=== PATIENT | male | born 1975 | race Caucasian/White ===

== ENCOUNTER 2018-02-11 04:09 | Inpatient (IN) | payer OTHER ==
[~2018-02-11] VITALS: Ht 188 cm; Wt 130.7 kg
[~2018-02-11 04:09] MED LIST: BAY PO; COR3 PO; DUONEB3 ML NEB; LIPI10 PO; ZES10 PO
[2018-02-11 05:14] LABS: CARBON DIOXIDE 29.8 mmol/L (21-32); CREATININE SERUM 1.6 mg/dL (0.7-1.3); POTASSIUM SERUM 3.1 mmol/L (3.5-5.1)
[2018-02-11 05:19] LABS: BILIRUBIN TOTAL 5.73 mg/dL (0.20-1.00); TOTAL PROTEIN, SERUM 7.5 g/dL (6.4-8.2)
[2018-02-11 05:21] LABS: ALBUMIN 3.3 g/dL (3.4-5.0)
[2018-02-11 05:30] LABS: BASOPHIL % 1.5 % (0-2)
[2018-02-11 05:31] LABS: PLATELET COUNT 224 x10^3mcL (130-400); RED CELL DISTRIBUTION WIDTH 18.4 % (11.5-14.5)
[2018-02-11] MEDS ORDERED: BUM1 (05:48)
[2018-02-11] MEDS ORDERED: COLACE100 MG (05:49)
[2018-02-11] MEDS ORDERED: CARVEDILOL3.125 M1 (05:49)
[2018-02-11] MEDS ORDERED: VITAMIN-D1000 IU (05:49)
[2018-02-11] MEDS ORDERED: ELIQUIS2.5 MG (05:49)
[2018-02-11] MEDS ORDERED: METOLAZONE2.5 M1 (05:49)
[2018-02-11] MEDS ORDERED: POTASSIUM CHLO10 MEQ (05:50)
[2018-02-11 05:58] LABS: MAGNESIUM 2.2 mg/dL (1.8-2.4); PHOSPHOROUS 4.1 mg/dL (2.5-4.9)
[2018-02-11 05:59] LABS: CHOLESTEROL/HDL RATIO 2.8
[2018-02-11 06:03] LABS: BILIRUBIN DIRECT 2.79 mg/dL (0.0-0.2); BILIRUBIN TOTAL 5.64 mg/dL (0.20-1.00)
[2018-02-11 06:10] LABS: T3 TOTAL 0.5 ng/mL
[2018-02-11 06:14] LABS: FREE T4 1.17 ng/dL (0.76-1.46); FREE THYROXINE INDEX 2.1 ug/dL (1.4-4.5); T4(THYROXINE) 5.4 ug/dL (4.7-13.3)
[2018-02-11 06:41] VITALS: BP 100/66
[2018-02-11 07:23] VITALS: BP 100/66
[2018-02-11 08:46] LABS: microscopic required? NO
[2018-02-11 09:59] LABS: urine erythrocyte NEGATIVE (NEGATIVE)
[2018-02-11 10:31] LABS: AMPHETAMINE QUAL UR NONE DETECTED (See below)
[2018-02-11 13:51] VITALS: BP 104/74
[2018-02-11 15:32] VITALS: BP 104/74
[2018-02-11 18:11] VITALS: BP 99/51
[2018-02-11 21:30] VITALS: BP 100/45
[2018-02-12 06:15] VITALS: BP 104/54
[2018-02-12 07:34] LABS: ALKALINE PHOSPHATASE 104 U/L (46-116); ALT/SGPT 15 U/L (16-63); AST/SGOT 38 U/L (15-37); BILIRUBIN DIRECT 2.43 mg/dL (0.0-0.2); BILIRUBIN TOTAL 4.61 mg/dL (0.20-1.00); CALCIUM 8.4 mg/dL (8.5-10.1); CARBON DIOXIDE 33.4 mmol/L (21-32); CHLORIDE SERUM 89 mmol/L (98-107); CREATININE SERUM 1.2 mg/dL (0.7-1.3); GFR1 > 60 mL/min; GLUCOSE SERUM 122 mg/dL (74-106); PHOSPHOROUS 2.9 mg/dL (2.5-4.9); SODIUM SERUM 126 mmol/L (136-145); TOTAL PROTEIN, SERUM 6.4 g/dL (6.4-8.2)
[2018-02-12 07:38] LABS: BASOPHIL % 0.5 % (0-2); PLATELET COUNT 217 x10^3mcL (130-400)
[2018-02-12 07:44] LABS: ALBUMIN 2.7 g/dL (3.4-5.0); POTASSIUM SERUM 2.4 mmol/L (3.5-5.1)
[2018-02-12 07:47] LABS: RED CELL DISTRIBUTION WIDTH 18.8 % (11.5-14.5)
[2018-02-12 08:30] VITALS: BP 90/54
[2018-02-12 12:16] VITALS: BP 90/55
[2018-02-12 16:39] VITALS: BP 86/56
[2018-02-12 20:49] VITALS: BP 93/60
[2018-02-12 22:22] VITALS: BP 94/69
[2018-02-13 05:48] LABS: BASOPHIL % 0.7 % (0-2); PLATELET COUNT 214 x10^3mcL (130-400)
[2018-02-13 06:09] LABS: CALCIUM 8.4 mg/dL (8.5-10.1); CARBON DIOXIDE 35.1 mmol/L (21-32); CHLORIDE SERUM 89 mmol/L (98-107); CREATININE SERUM 1.1 mg/dL (0.7-1.3); GFR1 > 60 mL/min; GLUCOSE SERUM 114 mg/dL (74-106); MAGNESIUM 1.8 mg/dL (1.8-2.4); PHOSPHOROUS 2.7 mg/dL (2.5-4.9); SODIUM SERUM 130 mmol/L (136-145)
[2018-02-13 06:12] LABS: POTASSIUM SERUM 2.8 mmol/L (3.5-5.1)
[2018-02-13 06:34] LABS: RED CELL DISTRIBUTION WIDTH 19.8 % (11.5-14.5)
[2018-02-13 07:26] VITALS: BP 93/64
[2018-02-13 12:19] VITALS: BP 98/63
[2018-02-13 16:22] VITALS: BP 92/59
[2018-02-13 22:02] VITALS: BP 96/62
[2018-02-14] VITALS (8 sets, daily range): BP systolic 78–110; BP diastolic 41–66
[2018-02-14 06:32] LABS: PLATELET COUNT 185 x10^3mcL (130-400)
[2018-02-14 07:00] LABS: CALCIUM 8.7 mg/dL (8.5-10.1); CARBON DIOXIDE 36.2 mmol/L (21-32); CHLORIDE SERUM 90 mmol/L (98-107); CREATININE SERUM 0.9 mg/dL (0.7-1.3); GFR1 > 60 mL/min; GLUCOSE SERUM 103 mg/dL (74-106); MAGNESIUM 1.5 mg/dL (1.8-2.4); PHOSPHOROUS 2.6 mg/dL (2.5-4.9); SODIUM SERUM 131 mmol/L (136-145)
[2018-02-14 07:08] LABS: POTASSIUM SERUM 2.8 mmol/L (3.5-5.1)
[2018-02-14 08:13] LABS: RED CELL DISTRIBUTION WIDTH 20.7 % (11.5-14.5)
[2018-02-14 11:50] LABS: ATYPICAL LYMPH 6 %; BAND NEUTROPHIL 0 % (0-10); BASOPHIL 1 % (0-2); MONOCYTE 4 % (0-7); SEGMENTED NEUTROPHILS 86 % (37-75)
[2018-02-14 11:51] LABS: rbc morphology (normal/abnorm) ABNORMAL (NORMAL)
[2018-02-14 11:52] LABS: PLATELET MORPHOLOGY PLATELETS DECREASED
[2018-02-15 05:34] VITALS: BP 89/63
[2018-02-15 06:05] LABS: BASOPHIL % 0.2 % (0-2); PLATELET COUNT 206 x10^3mcL (130-400)
[2018-02-15 06:09] LABS: CALCIUM 8.4 mg/dL (8.5-10.1); CARBON DIOXIDE 33.5 mmol/L (21-32); CHLORIDE SERUM 88 mmol/L (98-107); GFR1 > 60 mL/min; GLUCOSE SERUM 92 mg/dL (74-106); POTASSIUM SERUM 3.2 mmol/L (3.5-5.1); SODIUM SERUM 125 mmol/L (136-145)
[2018-02-15 06:22] LABS: RED CELL DISTRIBUTION WIDTH 20.3 % (11.5-14.5)
[2018-02-15 06:23] VITALS: BP 90/45
[2018-02-15 09:53] VITALS: BP 90/49
[2018-02-15 12:59] VITALS: BP 96/56
[2018-02-15 17:51] VITALS: BP 101/59
[2018-02-15 21:10] VITALS: BP 98/62
[2018-02-16 05:10] VITALS: BP 97/64
[2018-02-16 06:58] LABS: BASOPHIL % 0.9 % (0-2); PLATELET COUNT 224 x10^3mcL (130-400)
[2018-02-16 07:03] LABS: CALCIUM 8.9 mg/dL (8.5-10.1); CARBON DIOXIDE 33.8 mmol/L (21-32); CHLORIDE SERUM 88 mmol/L (98-107); GFR1 > 60 mL/min; GLUCOSE SERUM 108 mg/dL (74-106); MAGNESIUM 1.6 mg/dL (1.8-2.4); PHOSPHOROUS 3.3 mg/dL (2.5-4.9); POTASSIUM SERUM 3.8 mmol/L (3.5-5.1); SODIUM SERUM 126 mmol/L (136-145)
[2018-02-16 07:04] LABS: RED CELL DISTRIBUTION WIDTH 20.4 % (11.5-14.5)
[2018-02-16 07:31] VITALS: BP 101/67
[2018-02-16 12:27] VITALS: BP 102/60
[2018-02-16 15:37] VITALS: BP 99/71
[2018-02-16 21:05] VITALS: BP 123/72
[2018-02-17 06:24] VITALS: BP 106/70
[2018-02-17 06:43] LABS: BASOPHIL % 0.7 % (0-2); PLATELET COUNT 204 x10^3mcL (130-400)
[2018-02-17 07:10] LABS: CALCIUM 8.7 mg/dL (8.5-10.1); CARBON DIOXIDE 30.2 mmol/L (21-32); CHLORIDE SERUM 87 mmol/L (98-107); CREATININE SERUM 0.9 mg/dL (0.7-1.3); GFR1 > 60 mL/min; GLUCOSE SERUM 114 mg/dL (74-106); MAGNESIUM 1.9 mg/dL (1.8-2.4); POTASSIUM SERUM 3.6 mmol/L (3.5-5.1); SODIUM SERUM 127 mmol/L (136-145)
[2018-02-17 09:51] VITALS: BP 113/70
[2018-02-17 12:44] VITALS: BP 107/73
[2018-02-17 17:42] VITALS: BP 102/67
[2018-02-17 20:51] VITALS: BP 110/74
[2018-02-18 05:54] VITALS: BP 102/71
[2018-02-18 06:35] LABS: CALCIUM 8.9 mg/dL (8.5-10.1); CHLORIDE SERUM 85 mmol/L (98-107); CREATININE SERUM 1.3 mg/dL (0.7-1.3); GFR1 > 60 mL/min; GLUCOSE SERUM 111 mg/dL (74-106); POTASSIUM SERUM 4.2 mmol/L (3.5-5.1); SODIUM SERUM 126 mmol/L (136-145)
[2018-02-18 06:47] LABS: BASOPHIL % 0.6 % (0-2); PLATELET COUNT 221 x10^3mcL (130-400)
[2018-02-18 07:54] LABS: RED CELL DISTRIBUTION WIDTH 20.5 % (11.5-14.5)
[2018-02-18 08:07] VITALS: BP 104/65
[2018-02-18 12:18] VITALS: BP 106/72
[2018-02-18 15:33] LABS: rbc morphology (normal/abnorm) ABNORMAL (NORMAL)
[2018-02-18 16:30] VITALS: BP 102/69
[2018-02-18 20:50] VITALS: BP 94/56
[2018-02-19 04:32] VITALS: BP 92/54
[2018-02-19 07:11] LABS: BASOPHIL % 0.5 % (0-2); PLATELET COUNT 232 x10^3mcL (130-400)
[2018-02-19 07:12] LABS: RED CELL DISTRIBUTION WIDTH 21.4 % (11.5-14.5)
[2018-02-19 07:13] LABS: rbc morphology (normal/abnorm) ABNORMAL (NORMAL)
[2018-02-19 07:22] LABS: CALCIUM 9.1 mg/dL (8.5-10.1); CARBON DIOXIDE 30.1 mmol/L (21-32); CREATININE SERUM 1.4 mg/dL (0.7-1.3); POTASSIUM SERUM 4.2 mmol/L (3.5-5.1)
[2018-02-19 12:25] VITALS: BP 100/55
[2018-02-19 16:47] VITALS: BP 98/59
[2018-02-19 21:37] VITALS: BP 91/58
[2018-02-20 06:30] VITALS: BP 100/59
[2018-02-20 06:30] LABS: PLATELET COUNT 256 x10^3mcL (130-400)
[2018-02-20 06:40] LABS: CALCIUM 9.2 mg/dL (8.5-10.1); CHLORIDE SERUM 83 mmol/L (98-107); CREATININE SERUM 1.3 mg/dL (0.7-1.3); GFR1 > 60 mL/min; GLUCOSE SERUM 103 mg/dL (74-106)
[2018-02-20 06:41] LABS: RED CELL DISTRIBUTION WIDTH 20.8 % (11.5-14.5)
[2018-02-20 07:04] LABS: SODIUM SERUM 122 mmol/L (136-145)
[2018-02-20 08:03] VITALS: BP 90/63
[2018-02-20 10:00] VITALS: BP 105/29
[2018-02-20 10:35] VITALS: BP 100/56
[2018-02-20 11:19] LABS: ALBUMIN 2.7 g/dL (3.4-5.0); BILIRUBIN DIRECT 3.25 mg/dL (0.0-0.2); BILIRUBIN TOTAL 4.55 mg/dL (0.20-1.00); TOTAL PROTEIN, SERUM 7.6 g/dL (6.4-8.2)
[2018-02-20 12:35] LABS: SEGMENTED NEUTROPHILS 73 % (37-75)
[2018-02-20 12:36] LABS: ATYPICAL LYMPH 3 %; BAND NEUTROPHIL 3 % (0-10); BASOPHIL 0 % (0-2); MONOCYTE 9 % (0-7); rbc morphology (normal/abnorm) ABNORMAL (NORMAL)
[2018-02-20 12:37] LABS: acanthocyte (spur cell) 1+
[2018-02-20 12:38] LABS: PLATELET MORPHOLOGY PLATELETS DECREASED
[2018-02-20 15:26] VITALS: BP 105/92
[2018-02-20 19:51] VITALS: BP 98/63
[2018-02-21] VITALS (7 sets, daily range): BP systolic 82–102; BP diastolic 52–69
[2018-02-21 05:32] LABS: PLATELET COUNT 232 x10^3mcL (130-400)
[2018-02-21 05:37] LABS: BASOPHIL % 2.3 % (0-2); RED CELL DISTRIBUTION WIDTH 21.2 % (11.5-14.5)
[2018-02-21 05:38] LABS: CALCIUM 8.8 mg/dL (8.5-10.1); CARBON DIOXIDE 30.5 mmol/L (21-32); CREATININE SERUM 1.4 mg/dL (0.7-1.3); POTASSIUM SERUM 3.6 mmol/L (3.5-5.1)
[2018-02-21 05:42] LABS: TOTAL IRON BINDING CAPACITY 386 ug/dL (250-450)
[2018-02-21 05:51] LABS: IRON 31 ug/dL (65-170)
[2018-02-22 03:19] VITALS: BP 87/53
[2018-02-22 05:50] LABS: PLATELET COUNT 223 x10^3mcL (130-400)
[2018-02-22 06:01] LABS: RED CELL DISTRIBUTION WIDTH 21.1 % (11.5-14.5)
[2018-02-22 06:12] LABS: CALCIUM 8.6 mg/dL (8.5-10.1); CARBON DIOXIDE 39.2 mmol/L (21-32); CHLORIDE SERUM 82 mmol/L (98-107); CREATININE SERUM 1.3 mg/dL (0.7-1.3); GFR1 > 60 mL/min; GLUCOSE SERUM 112 mg/dL (74-106); POTASSIUM SERUM 3.1 mmol/L (3.5-5.1)
[2018-02-22 06:13] LABS: BAND NEUTROPHIL 1 % (0-10); MONOCYTE 8 % (0-7); SEGMENTED NEUTROPHILS 54 % (37-75)
[2018-02-22 06:17] LABS: PLATELET MORPHOLOGY PLATELETS NORMAL; rbc morphology (normal/abnorm) ABNORMAL (NORMAL)
[2018-02-22 06:20] LABS: SODIUM SERUM 123 mmol/L (136-145)
[2018-02-22 07:10] VITALS: BP 96/53
[2018-02-22 11:37] VITALS: BP 98/61
[2018-02-22 15:44] VITALS: BP 90/63
[2018-02-22 19:30] VITALS: BP 92/60
[2018-02-22 23:40] VITALS: BP 102/66
[2018-02-23 03:15] VITALS: BP 109/65
[2018-02-23 05:01] LABS: BASOPHIL % 0.9 % (0-2); PLATELET COUNT 223 x10^3mcL (130-400)
[2018-02-23 05:12] LABS: RED CELL DISTRIBUTION WIDTH 21.2 % (11.5-14.5)
[2018-02-23 05:14] LABS: CALCIUM 8.9 mg/dL (8.5-10.1); CARBON DIOXIDE 36.1 mmol/L (21-32); CHLORIDE SERUM 87 mmol/L (98-107); CREATININE SERUM 1.1 mg/dL (0.7-1.3); GFR1 > 60 mL/min; GLUCOSE SERUM 113 mg/dL (74-106); POTASSIUM SERUM 3.1 mmol/L (3.5-5.1); SODIUM SERUM 128 mmol/L (136-145)
[2018-02-23 05:46] LABS: rbc morphology (normal/abnorm) ABNORMAL (NORMAL)
[2018-02-23 07:43] VITALS: BP 103/69
[2018-02-23 11:13] VITALS: BP 80/71
[2018-02-23 15:01] VITALS: BP 103/72
[2018-02-23 19:45] VITALS: BP 85/57
[2018-02-24 03:52] VITALS: BP 106/62
[2018-02-24 05:29] LABS: CALCIUM 8.6 mg/dL (8.5-10.1); CARBON DIOXIDE 37.7 mmol/L (21-32); CHLORIDE SERUM 88 mmol/L (98-107); CREATININE SERUM 0.9 mg/dL (0.7-1.3); GFR1 > 60 mL/min; GLUCOSE SERUM 95 mg/dL (74-106)
[2018-02-24 05:32] LABS: BASOPHIL % 0.8 % (0-2); PLATELET COUNT 215 x10^3mcL (130-400)
[2018-02-24 05:38] LABS: SODIUM SERUM 130 mmol/L (136-145)
[2018-02-24 05:39] LABS: RED CELL DISTRIBUTION WIDTH 21.1 % (11.5-14.5)
[2018-02-24 09:36] VITALS: BP 104/73
[2018-02-24 12:45] VITALS: BP 101/71
[2018-02-24 16:56] VITALS: BP 98/65
[2018-02-24 19:59] VITALS: BP 103/66
[2018-02-24 23:56] VITALS: BP 105/74
[2018-02-25 04:00] VITALS: BP 110/74
[2018-02-25 05:07] LABS: BASOPHIL % 1.2 % (0-2); PLATELET COUNT 210 x10^3mcL (130-400)
[2018-02-25 05:13] LABS: CALCIUM 9.2 mg/dL (8.5-10.1); CHLORIDE SERUM 89 mmol/L (98-107); CREATININE SERUM 1.1 mg/dL (0.7-1.3); GFR1 > 60 mL/min; GLUCOSE SERUM 108 mg/dL (74-106); POTASSIUM SERUM 3.4 mmol/L (3.5-5.1); SODIUM SERUM 131 mmol/L (136-145)
[2018-02-25 05:15] LABS: CARBON DIOXIDE 40.4 mmol/L (21-32)
[2018-02-25 05:25] LABS: rbc morphology (normal/abnorm) ABNORMAL (NORMAL)
[2018-02-25 05:27] LABS: ovalocyte/elliptocyte 1+; target cell (codocyte) 1+
[2018-02-25 08:00] VITALS: BP 99/64
[2018-02-25 12:00] VITALS: BP 93/49
[2018-02-25 16:00] VITALS: BP 97/61
[2018-02-25 19:55] VITALS: BP 119/79
[2018-02-26] VITALS (7 sets, daily range): BP systolic 92–108; BP diastolic 58–69
[2018-02-26 05:35] LABS: BASOPHIL % 1.1 % (0-2); PLATELET COUNT 204 x10^3mcL (130-400); RED CELL DISTRIBUTION WIDTH 21.3 % (11.5-14.5)
[2018-02-26 05:46] LABS: CARBON DIOXIDE 36.7 mmol/L (21-32); CHLORIDE SERUM 87 mmol/L (98-107); CREATININE SERUM 1.1 mg/dL (0.7-1.3); GFR1 > 60 mL/min; GLUCOSE SERUM 109 mg/dL (74-106); POTASSIUM SERUM 3.1 mmol/L (3.5-5.1); SODIUM SERUM 129 mmol/L (136-145)
[2018-02-27] VITALS (16 sets, daily range): BP systolic 77–108; BP diastolic 27–69; Ht 188 cm; Wt 130.7 kg
[2018-02-27 05:38] LABS: PLATELET COUNT 201 x10^3mcL (130-400)
[2018-02-27 05:41] LABS: RED CELL DISTRIBUTION WIDTH 21.9 % (11.5-14.5)
[2018-02-27 05:44] LABS: CALCIUM 8.9 mg/dL (8.5-10.1); CARBON DIOXIDE 34.6 mmol/L (21-32); CHLORIDE SERUM 88 mmol/L (98-107); CREATININE SERUM 1.1 mg/dL (0.7-1.3); GFR1 > 60 mL/min; GLUCOSE SERUM 90 mg/dL (74-106); POTASSIUM SERUM 3.5 mmol/L (3.5-5.1); SODIUM SERUM 129 mmol/L (136-145)
[2018-02-27 06:13] LABS: MONOCYTE 5 % (0-7); SEGMENTED NEUTROPHILS 45 % (37-75); rbc morphology (normal/abnorm) ABNORMAL (NORMAL)
[2018-02-27 06:14] LABS: PLATELET MORPHOLOGY PLATELETS NORMAL
[2018-02-28 03:15] VITALS: BP 97/73
[2018-02-28 06:14] LABS: CALCIUM 8.9 mg/dL (8.5-10.1); CHLORIDE SERUM 87 mmol/L (98-107); CREATININE SERUM 1.1 mg/dL (0.7-1.3); GFR1 > 60 mL/min; GLUCOSE SERUM 85 mg/dL (74-106); POTASSIUM SERUM 3.6 mmol/L (3.5-5.1); SODIUM SERUM 127 mmol/L (136-145)
[2018-02-28 06:40] LABS: BASOPHIL % 1.1 % (0-2); PLATELET COUNT 244 x10^3mcL (130-400)
[2018-02-28 06:41] LABS: RED CELL DISTRIBUTION WIDTH 19.3 % (11.5-14.5)
[2018-02-28 07:59] VITALS: BP 89/59
[2018-02-28 11:24] VITALS: BP 100/60
[2018-02-28 15:41] VITALS: BP 104/67
[2018-02-28 20:00] VITALS: BP 96/62
[2018-03-01 05:28] VITALS: BP 94/59
[2018-03-01 09:23] VITALS: BP 93/63
[2018-03-01 10:18] VITALS: BP 93/63
[2018-03-01 13:28] VITALS: BP 112/69
[2018-03-01 15:49] VITALS: BP 112/69
[2018-03-01 20:58] VITALS: BP 100/64
[2018-03-02 05:47] VITALS: BP 112/67
[2018-03-02 09:57] VITALS: BP 112/67
[2018-03-02 10:11] VITALS: BP 92/63
[2018-03-02 13:40] VITALS: BP 97/60
== END 2018-03-02 22:40 | disposition expired | DRG 812 ==
LOC: ED 04:09 → DU 05:33 → IC 02-20 10:12 → DU 02-28 21:19 → IC 02-28 21:26 → DU 02-28 21:28
PROVIDERS: Emergency Medicine; Internal Medicine; ADMIT Family Medicine
PROC: 5A09357 Assistance with Respiratory Ventilation, Less than 24 Consecutive Hours, Continuous Positive Airway Pressure (ICD-10-PCS; principal; 2018-02-20)
PROC: 5A09357 Assistance with Respiratory Ventilation, Less than 24 Consecutive Hours, Continuous Positive Airway Pressure (ICD-10-PCS; 2018-02-21)
PROC: 5A09357 Assistance with Respiratory Ventilation, Less than 24 Consecutive Hours, Continuous Positive Airway Pressure (ICD-10-PCS; 2018-02-22)
PROC: 5A09357 Assistance with Respiratory Ventilation, Less than 24 Consecutive Hours, Continuous Positive Airway Pressure (ICD-10-PCS; 2018-02-26)
PROC: 5A09357 Assistance with Respiratory Ventilation, Less than 24 Consecutive Hours, Continuous Positive Airway Pressure (ICD-10-PCS; 2018-02-27)
PROC: 5A09357 Assistance with Respiratory Ventilation, Less than 24 Consecutive Hours, Continuous Positive Airway Pressure (ICD-10-PCS; 2018-02-28)
PROC: 5A09457 Assistance with Respiratory Ventilation, 24-96 Consecutive Hours, Continuous Positive Airway Pressure (ICD-10-PCS; 2018-03-01)
DX: T43.621A Poisoning by amphetamines, accidental (unintentional), initial encounter (principal); N17.0 Acute kidney failure with tubular necrosis; J96.21 Acute and chronic respiratory failure with hypoxia; R57.0 Cardiogenic shock; I50.43 Acute on chronic combined systolic (congestive) and diastolic (congestive) heart failure; G92 Toxic encephalopathy; J18.9 Pneumonia, unspecified organism; I27.20 Pulmonary hypertension, unspecified; E66.2 Morbid (severe) obesity with alveolar hypoventilation; E87.1 Hypo-osmolality and hyponatremia; L03.116 Cellulitis of left lower limb; L03.115 Cellulitis of right lower limb; J96.22 Acute and chronic respiratory failure with hypercapnia; Z66 Do not resuscitate; Z51.5 Encounter for palliative care; E11.65 Type 2 diabetes mellitus with hyperglycemia; E87.6 Hypokalemia; R74.0 Nonspecific elevation of levels of transaminase and lactic acid dehydrogenase [LDH]; F12.10 Cannabis abuse, uncomplicated; J44.9 Chronic obstructive pulmonary disease, unspecified; I08.3 Combined rheumatic disorders of mitral, aortic and tricuspid valves; I42.7 Cardiomyopathy due to drug and external agent; E02 Subclinical iodine-deficiency hypothyroidism; Z68.32 Body mass index [BMI] 32.0-32.9, adult; Z91.19 Patient's noncompliance with other medical treatment and regimen; Z91.14 Patient's other noncompliance with medication regimen; Y92.89 Other specified places as the place of occurrence of the external cause
CPT/HCPCS: 36600; 82652; 82962; 83880; 84439; 87804; 97110-GP; 97112-GP; 97116-GP; 97530-GP; G0480; J1120; J1250; J1644; J1940; J1956; J2060; J2270; J2405; J2543; J3475; J3480; J3490; J7030; J7040; J7620; Q0092